=== PATIENT | male | born 1955 | race Caucasian/White ===

== ENCOUNTER 2016-09-01 22:55 | Emergency (ER) | payer BC ==
[2016-09-01 23:07] VITALS: BMI 28.3
[2016-09-01] MEDS ORDERED: NS 1000 ML 1,000 ML IV ONE (23:25)
[2016-09-01] MEDS ORDERED: NS 1000 ML 1,000 ML ONE (23:30)
--- NOTE | 2016-09-01 23:31 | DR.GENAD ---
HPI - PCP Primary Care Physician: sean - Complaint/Symptoms Chief Complaint Doctors Comments: Spouse reports that patient has been having problems with breathing and not feeling well this week. He has been seen by his pcp and treated with steroids and patient has not gotten better. He presents with complaint of altered mental status, difficulity in breathing and not feeling well. Chief Complaint:: sciatic pain treated by a week ago, since progressively got worse. started with fever yesterday and confusion started today. decrease appetite, urine dark and strong smelling. Self Treatment fo Chief Complaint: cortisone injection, percocet, tramadol - Source History Provided: Significant Other - Mode of Arrival Mode of Arrival: Wheelchair - Timing Onset of Chief Complaint: 09/01/16 PMH - PMH Past Medical History: Yes Past Medical History: Diabetes, Dyslipidemia, Hypertension Past Surgical History: No - Family History History of Family Medical Conditions: Yes Family Medical History: Coronary Artery Disease, Hypertension - Social History Does patient currently use any type of tobacco product: No Have you used tobacco products in the last 12 months: No Type of Tobacco Use: None Does any household member use tobacco: No Alcohol Use: None Do you use any recreational Drugs:: No Lives With: Spouse Lives Where: Home - infectious screening Have you traveled outside the country in the last 6 months?: No Isolation: Standard ROS - Review of Systems Constitutional: No Symptoms Reported, Diaphoresis ENTM: No Symptoms Reported Respiratoy: No Symptoms Reported Cardiovascular: No Symptoms Reported Gastrointestinal/Abdominal: No Symptoms Reported Genitourinary: No Symptoms Reported Neurological: No Symptoms Reported Musculoskeletal: No Symptoms Reported Integumentary: No Symptoms Reported Hematologic/Lymphatic: No Symptoms Reported Endocrine: No Symptoms Reported Psychiatric: No Symptoms Reported All Other Systems: Reviewed and Negative PE - Vital Signs Vitals: Temperature 102.2 F Pulse Rate [Right Brachial] 100 Pulse Rate 100 Respiratory Rate 18 Blood Pressure [Right Arm] 123/53 Blood Pressure [Left Arm] 164/87 Blood Pressure 111/50 O2 Sat by Pulse Oximetry 93 - General Limitations: No Limitations General Appearance: Alert, In No Apparent Distress - Head Head Exam: Normal Inspection, Atraumatic - Eyes Eye exam: Normal Appearance, PERRL, EOMI - ENT ENT Exam: Normal Exam External Ear Exam: Normal External Inspection TM/Canal Exam: Bilateral Normal Nose Exam: Normal Nose Exam Mouth Exam: Normal Inspection Throat Exam: Normal Inspection - Neck Neck Exam: Normal Inspection - Chest Chest Inspection: Normal Inspection - Respiratory Respiratory Exam: Normal Lung Sounds Bilat Respiratory Exam: Bilateral Clear to Auscultation - Cardiovascular Cardiovascular Exam: Regular Rate, Normal Rhythm - Abdominal Exam Abdominal Exam: Normal Inspection Abdominal Tenderness: RUQ, RLQ, LUQ, LLQ - Extremities Extremities Exam: Normal Inspection, Full ROM - Back Back Exam: Normal Inspection, Full ROM - Neurologic Neurological Exam: Alert, Oriented X3, CN II-XII Intact - Psychiatric Psychiatric Exam: Normal Affect - Skin Skin Exam: Warm, Dry, Intact Course - Reevaluation 1st: Improved - Consultation Called: 01:50 (Report given to Dr Arceo (ER to ER) who accepted patient for transfer) ROR - Labs Reviewed Result Diagrams: 09/01/16 23:30 09/01/16 23:30 Laboratory: WBC 51.0 X10^3/uL (3.6-10.0) H* 09/01/16 23:30 RBC 3.22 X10^6/uL (4.7-6.0) L 09/01/16 23: Hgb 9.8 g/dL (13.5-18.0) L 09/01/16 23:30 Hct 29.0 % (42.0-54.0) L 09/01/16 23:30 MCV 90.1 fL (80.0-100.0) 09/01/16 23:30 MCH 30.3 pg (27.0-34.0) 09/01/16 23:30 MCHC 33.7 g/dL (33.0-35.0) 09/01/16 23: RDW 19.1 % (11.6-16.5) H 09/01/16 23:30 Plt Count 15 X10^3/uL (150.0-450.0) L* 09/01/16 23:30 Plt Count Comment Decreased (ADEQUATE) 09/01/16: MPV 9.8 fL (7.4-11.0) 09/01/16 23:30 Neut % 91.6 % (42.0-75.0) H 09/01/16 23:30 Lymph % 5.1 % (21.0-51.0) L 09/01/16: Parmer % 0.8 % (0.0-13.0) 09/01/16 23:30 Eos % 2.5 % (0.9-2.9) 09/01/16 23:30 Baso % 0 % (0.2-1.0) L 09/01/16 23:30 Neut # 46.6 x10^3/uL (2.2-4.8) H 09/01/16 23:30 Lymph # 2.6 X10^3/uL (1.3-2.9) 09/01/16 23:30 Parmer # 0.4 x10^3/uL (0.3-0.8) 09/01/16 23:30 Eos # 1.3 x10^3/uL (0.0-0.2) H 09/01/16 23:30 Baso # 0.0 X10^3/uL (0.0-0.1) 09/01/16 23:30 Absolute Nucleated RBC 0.0 /100WBC 09/01/16 23:30 Total Counted 100 09/01/16 23:30 Neutrophils % (Manual) 7 % (39-76) L 09/01/16 23:30 Band Neutrophils % 2 % (0-10) 09/01/16 23:30 Lymphocytes % (Manual) 25 % (13-43) 09/01/16 23:30 Monocytes % (Manual) 2 % (4-9) L 09/01/16 23:30 Myelocytes % 4 09/01/16 23:30 Promyelocytes % 6 09/01/16 23:30 Nucleated RBCs 1 09/01/16 23:30 Atypical Lymphocytes 14 09/01/16 23:30 Blast Cells 39 (-1) H 09/01/16 23:30 Smudge Cells 5 09/01/16 23:30 Plt Morphology Comment Normal (NORMAL) 09/01/16 23:30 RBC Morphology Abnormal (NORMAL) 09/01/16 23:30 Anisocytosis Slight A 09/01/16 23:30 Sodium 132 mmol/L (136-145) L 09/01/16 23:30 Corrected Sodium 139 mmol/L (136-145) 09/01/16 23:30 Potassium 4.7 mmol/L (3.5-5.1) 09/01/16 23:30 Chloride 96 mmol/L (98-107) L 09/01/16 23:30 Carbon Dioxide 20.3 mmol/L (21-32) L 09/01/16 23:30 BUN 116 mg/dL (7-18) H 09/01/16 23:30 Creatinine 4.99 mg/dL (0.70-1.30) H 09/01/16 23:30 Est GFR (MDRD) Af Amer 15 (>60) L 09/01/16 23:30 Est GFR (MDRD) Non-Af 13 (>60) L 09/01/16 23:30 Glucose 395 mg/dL (65-99) H 09/01/16 23:30 Lactic Acid 2.1 mmol/L (0.4-2.0) H 09/02/16 00:20 Calcium 8.6 mg/dL (8.5-10.1) 09/01/16 23:30 Corrected Calcium 9.7 mg/dL (8.5-10.1) 09/01/16 23: Phosphorus 2.9 mg/dL (2.6-4.7) 09/01/16 23: Magnesium 2.2 mg/dL (1.7-2.9) 09/01/16 23:30 Total Bilirubin 3.60 mg/dL (0.2-1.0) H 09/01/16 23:30 AST 112 Units/L (15-37) H 09/01/16 23:30 ALT 125 Units/L (12-78) H 09/01/16 23:30 Alkaline Phosphatase 407 Units/L (46-116) H 09/01/16 23:30 Creatine Kinase 161 Units/L (39-308) 09/01/16 23:30 CK-MB (CK-2) < 1.0 ng/mL (0-4.0) 09/01/16 23:30 CK/CKMB % Calc 0.6 % (<4) 09/01/16: Troponin I 0.10 ng/mL (0-1.5) 09/01/16 23:30 Total Protein 6.9 g/dL (6.4-8.2) 09/01/16 23:30 Albumin 2.6 g/dL (3.4-5.0) L 09/01/16 23:30 Globulin 4.3 g/dL (2.5-4.5) 09/01/16 23:30 Albumin/Globulin Ratio 0.6 Ratio (1.1-2.1) L 09/01/16 23:30 Specimen Type Clean catch urine 09/02/16 01:00 Urine Color Chitra (YELLOW) 09/02/16 01:00 Urine Appearance Cloudy (CLEAR) 09/02/16 01:00 Urine pH 5.0 (5.0 - 8.0) 09/02/16 01:00 Ur Specific [place] 1.020 (1.000-1.030) 09/02/16 01:00 Urine Protein 2+ (NEGATIVE) 09/02/16 01:00 Urine Glucose (UA) 2+ (NEGATIVE) 09/02/16 01:00 Urine Ketones Negative (NEGATIVE) 09/02/16 01:00 Urine Occult Blood 5+ (NEGATIVE) 09/02/16 01:00 Urine Nitrite Negative (NEGATIVE) 09/02/16 01:00 Urine Bilirubin 2+ (NEGATIVE) 09/02/16 01:00 Urine Urobilinogen 3+ (NORMAL) 09/02/16 01:00 Ur Leukocyte Esterase 2+ (NEGATIVE) 09/02/16 01:00 Urine RBC 80-100 /HPF (NEGATIVE) 09/02/16 01:00 Urine WBC 15-20 /HPF (NEGATIVE) 09/02/16 01:00 Ur Squamous Epith Cells Few /HPF (NEGATIVE) 09/02/16 01:00 Amorphous Sediment 1+ /HPF (NEGATIVE) 09/02/16 01:00 Urine Bacteria 1+ /HPF (NEGATIVE) 09/02/16 01:00 Ur Culture Indicated? Yes/culture set up 09/02/16 01:00 - XRAY XRAY Interpreted by: Radiologist (CT Brain: The cerebral and cerebella cortex are normal. The ventricular system is nondilated. No intra or extra-axial mass or hemorrhage. The curm-white junction is preserved. There is no evidence of subacute ischemic change. The basilar cisterns are clear. The skull is intact. The mastoid air cells are clear. Impression: Normal brain CT examination. Chest X-Ray: Focal areas of consolidation are seen in both lower lobes. The cardiac silhouette and mediastinum are normal. The regional skeleton is intact. No pneumothorax or pleural effusioon. Impression: Consolidation noted in both lung bases consistent with pneumonia.) - EKG Rate: 107 Rhythm: NSR Hypertrophy: LAE - Diagnosis Discharge Problem: Bilateral Pneumonia with consolidation, Hyperglycemia, Liver enzyme elevation Sepsis Qualifiers: Sepsis type: sepsis due to unspecified organism Qualified Code(s): A41.9 - Sepsis, unspecified organism Acute renal failure (ARF) Qualifiers: Acute renal failure type: unspecified Qualified Code(s): N17.9 - Acute kidney failure, unspecified - Discharge Plan Condition: Stable - Follow ups/Referrals Follow ups/Referrals: Dung Esposito [Primary Care Provider] - 3 days - Instructions
--- NOTE | 2016-09-01 23:59 | CT ---
EXAM: CT BRAIN WITHOUT CONTRAST INDICATION: Altered mental status COMPARISION: No Priors TECHNIQUE: Routine axial CT of the brain was performed without intravenous contrast. FINDINGS: The cerebral and cerebellar cortex are normal. The ventricular system is nondilated. No intra or ext ra-axial mass or hemorrhage. The crum-white junction is preserved. There is no evidence of subacute ischemic change. The basilar cisterns are clear. The skull is intact. The mastoid air cells are clear. IMPRESSION: Normal brain CT examination Reported By:
[2016-09-02 00:04] LABS: BLOOD UREA NITROGEN 116 mg/dL (7-18); CALCIUM 8.6 mg/dL (8.5-10.1); CARBON DIOXIDE 20.3 mmol/L (21-32); CHLORIDE 96 mmol/L (98-107); COR NA(FOR HYPERGLY) 139 mmol/L (136-145); CREATININE 4.99 mg/dL (0.70-1.30); GLUCOSE 395 mg/dL (65-99); SODIUM 132 mmol/L (136-145); eGFR BLACK RACES 15 (>60); eGFR NON BLACK RACES 13 (>60)
[2016-09-02 00:08] LABS: ALANINE AMINOTRANSFERASE 125 Units/L (12-78); ALBUMIN 2.6 g/dL (3.4-5.0); ALKALINE PHOSPHATASE 407 Units/L (46-116); ASPARTATE AMINO TRANSFERASE 112 Units/L (15-37); CKMB % 0.6 % (<4); COR CA(FOR HYPOALB) 9.7 mg/dL (8.5-10.1); CREATINE KINASE 161 Units/L (39-308); CREATINE KINASE MB < 1.0 ng/mL (0-4.0); MAGNESIUM 2.2 mg/dL (1.7-2.9); PHOSPHORUS 2.9 mg/dL (2.6-4.7); TOTAL PROTEIN 6.9 g/dL (6.4-8.2)
--- NOTE | 2016-09-02 00:10 | RAD ---
EXAM: Chest X-ray INDICATION: Fever, tachypnea COMPARISION: Prior exam from May 26, 2016 TECHNIQUE: AP, single view FINDINGS: Focal areas of consolidation are seen in both lower lobes. The cardiac silhouette and mediastinum ar e normal. The regional skeleton is intact. No pneumothorax or pleural effusion. IMPRESSION: Consolidation noted in both lung bases consistent with pneumonia. Reported By:
[2016-09-02] MEDS ORDERED: SALINE 3% 15 ML NEB TX ONE (00:33)
[2016-09-02 00:48] LABS: BASOPHILS % (AUTO) 0 % (0.2-1.0); EOSINOPHILS # (AUTO) 1.3 x10^3/uL (0.0-0.2); EOSINOPHILS % (AUTO) 2.5 % (0.9-2.9); HEMOGLOBIN 9.8 g/dL (13.5-18.0); LYMPHOCYTES # (AUTO) 2.6 X10^3/uL (1.3-2.9); LYMPHOCYTES % (AUTO) 5.1 % (21.0-51.0); MEAN CORPUSCULAR HEMOGLOBIN 30.3 pg (27.0-34.0); MEAN CORPUSCULAR HGB CONC 33.7 g/dL (33.0-35.0); MEAN CORPUSCULAR VOLUME 90.1 fL (80.0-100.0); MEAN PLATELET VOLUME 9.8 fL (7.4-11.0); MONOCYTES # (AUTO) 0.4 x10^3/uL (0.3-0.8); MONOCYTES % (AUTO) 0.8 % (0.0-13.0); NEUTROPHILS # (AUTO) 46.6 x10^3/uL (2.2-4.8); NEUTROPHILS % (AUTO) 91.6 % (42.0-75.0); RED BLOOD COUNT 3.22 X10^6/uL (4.7-6.0); RED CELL DISTRIBUTION WIDTH 19.1 % (11.6-16.5)
[2016-09-02] MEDS ORDERED: NS 1000 ML 1,000 ML ONE ×2 (00:53→01:36)
[2016-09-02] MEDS ORDERED: NS 1000 ML 1,000 ML IV ONE (00:53)
[2016-09-02 01:20] LABS: BILIRUBIN,URINE 2+ (NEGATIVE); BLOOD/HEMOGLOBIN,URINE 5+ (NEGATIVE); GLUCOSE, URINE 2+ (NEGATIVE); KETONES,URINE NEGATIVE (NEGATIVE); LEUKOCYTE ESTERASE ,URINE 2+ (NEGATIVE); NITRITES,URINE NEGATIVE (NEGATIVE); PROTEIN,URINE 2+ (NEGATIVE); UROBILINOGEN,URINE 3+ (NORMAL)
[2016-09-02] MEDS ORDERED: LEVAQUIN PREMIX IV 750 MG 750 MG/150 ML BAG IV ONE ×2 (01:30→01:31)
[2016-09-02 01:34] VITALS: BP 123/53
[2016-09-02 01:35] LABS: BAND NEUTROPHILS % 2 % (0-10)
[2016-09-02 01:36] LABS: ANISOCYTOSIS SLIGHT; MYELOCYTES % 4; PLATELET MORPHOLOGY COMMENT NORMAL (NORMAL); PROMYELOCYTES % 6; SMUDGE CELLS 5
[2016-09-02 01:48] LABS: AMORPHOUS SEDIMENT,UR 1+ /HPF (NEGATIVE); APPEARANCE,URINE CLOUDY (CLEAR); BACTERIA,URINE 1+ /HPF (NEGATIVE); COLOR,URINE AMBER (YELLOW); RBC,URINE 80-100 /HPF (NEGATIVE); SQUAMOUS EPITHELIAL CELL,UR FEW /HPF (NEGATIVE)
[2016-09-04 19:10] LABS: PLATELET COUNT 15 X10^3/uL (150.0-450.0)
== END 2016-09-02 02:30 | disposition short-term general hospital (02) ==
LOC: ER 23:10
DX: J18.8 Other pneumonia, unspecified organism (principal); A41.52 Sepsis due to Pseudomonas; B96.5 Pseudomonas (aeruginosa) (mallei) (pseudomallei) as the cause of diseases classified elsewhere; B96.1 Klebsiella pneumoniae [K. pneumoniae] as the cause of diseases classified elsewhere; N17.9 Acute kidney failure, unspecified; R73.9 Hyperglycemia, unspecified; I10 Essential (primary) hypertension; R41.82 Altered mental status, unspecified
CPT/HCPCS: 36415; 70450; 71010; 80053; 81001; 82550; 82553; 83605; 83735; 84100; 84484; 85025; 85060; 87040; 87077; 87086; 87186; 93005; 93010; 94640; 96365; 96367; 96374; 99284; 99285; A4222; J1956

== ENCOUNTER 2017-04-23 19:03 | Emergency (ER) | payer BC ==
[2017-04-23 19:14] VITALS: BMI 30.9
--- NOTE | 2017-04-23 19:45 | DR.GENAD ---
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 He is afebrile but has noticed increased abdomial girth the past few days. He presents with dyspnea of on days duration. Chief Complaint:: PT STATES" I'M BEING TREATED FOR CANCER I WENT TO [facility] LAST NIGHT THEY DID CHEST XRAY AND LABS I CAME HOME AT 7 THIS AM. MY STOMACH IS DISTENDED AND SOB HAS GOTTEN WORSE" - Source History Provided: Patient - Mode of Arrival Mode of Arrival: Ambulatory - Timing Onset of Chief Complaint: 04/22/17 PMH - PMH Past Medical History: Yes Past Medical History: Diabetes, Dyslipidemia, Hypertension Past Medical History Comment: AML Past Surgical History: Yes Past Surgical History Comment: SINUS CENTRAL LINE TO RT CW - Family History History of Family Medical Conditions: Yes Family Medical History: Coronary Artery Disease, Hypertension - Social History Does patient currently use any type of tobacco product: No Have you used tobacco products in the last 12 months: No Type of Tobacco Use: None Does any household member use tobacco: No Do you use any recreational Drugs:: No Lives With: Family Lives Where: Home - infectious screening In the last 2 months have you had wt loss of >10#?: NO Have you had fever, night sweats or hemotysis?: No Have you traveled outside the country in the last 6 months?: No Isolation: Standard ROS - Review of Systems Constitutional: Weakness, Other (increasing abdominal girth) Eyes: No Symptoms Reported ENTM: No Symptoms Reported Respiratoy: No Symptoms Reported Cardiovascular: No Symptoms Reported Gastrointestinal/Abdominal: No Symptoms Reported Genitourinary: No Symptoms Reported Neurological: No Symptoms Reported Musculoskeletal: No Symptoms Reported Integumentary: No Symptoms Reported Hematologic/Lymphatic: No Symptoms Reported Endocrine: No Symptoms Reported Psychiatric: No Symptoms Reported, See HPI All Other Systems: Reviewed and Negative PE - Vital Signs Vitals: Temperature 99.2 F Pulse Rate [Left] 106 Pulse Rate 100 Respiratory Rate 20 Blood Pressure [Right Arm] 123/53 Blood Pressure [Left Arm] 153/70 Blood Pressure 137/60 O2 Sat by Pulse Oximetry 98 - General General Appearance: Alert, Anxious - Head Head Exam: Normal Inspection, Atraumatic - Eyes Eye exam: Normal Appearance, PERRL, EOMI - ENT ENT Exam: Normal Exam, Normal Oropharynx External Ear Exam: Normal External Inspection TM/Canal Exam: Bilateral Normal Nose Exam: Normal Nose Exam Mouth Exam: Normal Inspection Throat Exam: Normal Inspection - Neck Neck Exam: Normal Inspection - Chest Chest Inspection: Normal Inspection - Respiratory Respiratory Exam: Normal Lung Sounds Bilat Respiratory Exam: Bilateral Clear to Auscultation - Cardiovascular Cardiovascular Exam: Regular Rate, Normal Rhythm - Abdominal Exam Abdominal Exam: Distention, Tenderness, Hyperactive Bowel Sounds Abdominal Tenderness: Diffuse - Extremities Extremities Exam: Edema (left lower extremity) - Back Back Exam: Normal Inspection - Neurologic Neurological Exam: Alert, Oriented X3, CN II-XII Intact - Psychiatric Psychiatric Exam: Normal Affect, Normal Mood - Skin Skin Exam: Warm, Dry, Intact Course - Reevaluation 1st: Improved - Consultation Called: 11:45 (Dr Covington accepted patient for admission to 8th floor) - Education/Counseling Educated On: Treatment, Diagnosis ROR - Labs Reviewed Result Diagrams: 04/23/17 20:08 04/23/17 20:08 Laboratory: WBC 34.9 X10^3/uL (3.6-10.0) H* 04/23/17 20:08 RBC 3.23 X10^6/uL (4.7-6.0) L 04/23/17 20:08 Hgb 11.2 g/dL (13.5-18.0) L 04/23/17 20:08 Hct 31.3 % (42.0-54.0) L 04/23/17 20:08 MCV 96.7 fL (80.0-100.0) 04/23/17 20:08 MCH 34.6 pg (27.0-34.0) H 04/23/17 20:08 MCHC 35.7 g/dL (33.0-35.0) H 04/23/17 20:08 RDW 15.3 % (11.6-16.5) 04/23/17 20:08 Plt Count 24 X10^3/uL (150.0-450.0) L 04/23/17 20:08 Plt Count Comment Decreased (ADEQUATE) 04/23/17 20:08 MPV 8.1 fL (7.4-11.0) 04/23/17 20:08 Neut % 82.7 % (42.0-75.0) H 04/23/17 20:08 Lymph % 15.2 % (21.0-51.0) L 04/23/17 20:08 [place] % 0.4 % (0.0-13.0) 04/23/17 20:08 Eos % 1.0 % (0.9-2.9) 04/23/17 20:08 Baso % 0.7 % (0.2-1.0) 04/23/17 20:08 Neut # 28.8 x10^3/uL (2.2-4.8) H 04/23/17 20:08 Lymph # 5.3 X10^3/uL (1.3-2.9) H 04/23/17 20:08 [place] # 0.1 x10^3/uL (0.3-0.8) L 04/23/17 20:08 Eos # 0.4 x10^3/uL (0.0-0.2) H 04/23/17 20:08 Baso # 0.3 X10^3/uL (0.0-0.1) H 04/23/17 20:08 Absolute Nucleated RBC 0.0 /100WBC 04/23/17 20:08 Total Counted 100 04/23/17 20:08 Neutrophils % (Manual) 2 % (39-76) L 04/23/17 20:08 Band Neutrophils % 2 % (0-10) 04/23/17 20:08 Lymphocytes % (Manual) 18 % (13-43) 04/23/17 20:08 Monocytes % (Manual) 40 % (4-9) H 04/23/17 20:08 Eosinophils % (Manual) 3 % (0-6) 04/23/17 20:08 Promyelocytes % 11 04/23/17 20:08 Nucleated RBCs 3 04/23/17 20:08 Atypical Lymphocytes 4 04/23/17 20:08 Blast Cells 20 (-1) H 04/23/17 20:08 Plt Morphology Comment Normal (NORMAL) 04/23/17 20:08 RBC Morphology Abnormal (NORMAL) 04/23/17 20:08 Polychromasia Slight 04/23/17 20:08 Poikilocytosis Slight A 04/23/17 20:08 D-Dimer > 5000 ng/mL (0-400) H* 04/23/17 20:08 Sodium 134 mmol/L (136-145) L 04/23/17 20:08 Corrected Sodium 135 mmol/L (136-145) L 04/23/17 20:08 Potassium 4.3 mmol/L (3.5-5.1) 04/23/17 20:08 Chloride 100 mmol/L (98-107) 04/23/17 20:08 Carbon Dioxide 22.5 mmol/L (21-32) 04/23/17 20:08 BUN 19 mg/dL (7-18) H 04/23/17 20:08 Creatinine 1.87 mg/dL (0.70-1.30) H 04/23/17 20:08 Est GFR (MDRD) Af Amer 47 (>60) L 04/23/17 20:08 Est GFR (MDRD) Non-Af 39 (>60) L 04/23/17 20:08 Glucose 142 mg/dL (65-99) H 04/23/17 20:08 Calcium 8.6 mg/dL (8.5-10.1) 04/23/17 20:08 - XRAY XRAY Interpreted by: Radiologist (CT Abdomen: There is right basilar atelectasis but otherwise the lung bases are clear. There is a small to moderate quantity of asites seen in the upper abdomen and collecting in the pericolic gutters bilaterally. There is moderate quantity of pelvic ascites appreciated. There is the suggestion of omental caking and possible carcinomatosis seen throughout the upper abdomen. This would need correlation with a diagnostic paracentesis to evaluate for malignant ascitic cells. Correlation with either prior imaging studies and medical history/clinical oncological history will also be required to evaluate for peritoneal carcinomatosis in this patient and to exclude carcinomatosis in this patient. Noncontrast CT images of the liver, gallbladder, spleen,pancreas, kidneys and adrenal glands show no acute abnormalities. Shotty and suspicous retroperitoneal adenopathy is seen in the upper abdomen with multiple mesenteric lymph nodes also observed which may be reactive in nature. There is a small fat containing periumbilical hernia. There is no evidence for bowel obstruction or free peritoneal air. No other acute abdominopelvic abnormalities are seen. The bones displaced somewhat sclerotic and mottled appearance which can be seen with reactive changes or nonspecific sclerotic metastasis but which can be correlated with bone scan imaging; as clinically necessary. 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
[2017-04-23 20:16] LABS: BASOPHILS # (AUTO) 0.3 X10^3/uL (0.0-0.1); BASOPHILS % (AUTO) 0.7 % (0.2-1.0); EOSINOPHILS # (AUTO) 0.4 x10^3/uL (0.0-0.2); HEMATOCRIT 31.3 % (42.0-54.0); HEMOGLOBIN 11.2 g/dL (13.5-18.0); LYMPHOCYTES # (AUTO) 5.3 X10^3/uL (1.3-2.9); LYMPHOCYTES % (AUTO) 15.2 % (21.0-51.0); MEAN CORPUSCULAR HEMOGLOBIN 34.6 pg (27.0-34.0); MEAN CORPUSCULAR HGB CONC 35.7 g/dL (33.0-35.0); MEAN CORPUSCULAR VOLUME 96.7 fL (80.0-100.0); MEAN PLATELET VOLUME 8.1 fL (7.4-11.0); MONOCYTES # (AUTO) 0.1 x10^3/uL (0.3-0.8); MONOCYTES % (AUTO) 0.4 % (0.0-13.0); NEUTROPHILS # (AUTO) 28.8 x10^3/uL (2.2-4.8); NEUTROPHILS % (AUTO) 82.7 % (42.0-75.0); PLATELET COUNT 24 X10^3/uL (150.0-450.0); RED BLOOD COUNT 3.23 X10^6/uL (4.7-6.0); RED CELL DISTRIBUTION WIDTH 15.3 % (11.6-16.5)
[2017-04-23 20:22] LABS: BLOOD UREA NITROGEN 19 mg/dL (7-18); CALCIUM 8.6 mg/dL (8.5-10.1); CARBON DIOXIDE 22.5 mmol/L (21-32); CHLORIDE 100 mmol/L (98-107); COR NA(FOR HYPERGLY) 135 mmol/L (136-145); CREATININE 1.87 mg/dL (0.70-1.30); SODIUM 134 mmol/L (136-145); eGFR BLACK RACES 47 (>60); eGFR NON BLACK RACES 39 (>60)
[2017-04-23 20:30] LABS: WHITE BLOOD COUNT 34.9 X10^3/uL (3.6-10.0)
[2017-04-23 21:43] LABS: BAND NEUTROPHILS % 2 % (0-10)
[2017-04-23 21:49] LABS: PLATELET MORPHOLOGY COMMENT NORMAL (NORMAL); POIKILOCYTOSIS SLIGHT; POLYCHROMASIA SLIGHT
[2017-04-23 21:51] LABS: PROMYELOCYTES % 11
--- NOTE | 2017-04-23 21:59 | CT ---
History: Abdominal pain and ascites. History of cancer. Exam: Noncontrast CT examination the abdomen and pelvis. Technique: Axial noncontrast CT images of the abdomen & pelvis were performed from the lung bases to the pubic s ymphysis without the benefit of IV contrast. Sagittal and coronal reformatted CT images of the abdome n pelvis were also performed in this patient. Comparison: None. Findings: There is right basilar atelectasis but otherwise the lung bases are clear. There is a small to moderate quantity of ascites seen in the upper abdomen and collecting in the pericolic gutters bi laterally. There is a moderate quantity of pelvic ascites appreciated. There is the suggestion of ome ntal caking and possible carcinomatosis seen throughout the upper abdomen. This would need correlatio n with a diagnostic paracentesis to evaluate for malignant ascitic cells. Correlation with either marivel or imaging studies and medical history/clinical/oncological history will also be required to evaluate for peritoneal carcinomatosis in this patient and to exclude carcinomatosis in this patient. Noncont rast CT images of the liver, gallbladder, spleen, pancreas, kidneys, and adrenal glands show no acute abnormalities. Shotty and suspicious retroperitoneal adenopathy is seen in the upper abdomen with mu ltiple mesenteric lymph nodes also observed which may be reactive in nature. There is a small fat con taining periumbilical hernia. There is no evidence for bowel obstruction or free peritoneal air. No o ther acute abdominopelvic abnormalities are seen. The bones displaced somewhat sclerotic and mottled appearance which can be seen with reactive changes or nonspecific sclerotic metastasis but which can be correlated with bone scan imaging, as clinically necessary. No acute fracture or lytic bony lesion is seen Impression: Small to moderate quantity of ascites seen in the upper abdomen and collecting in the per icolic gutters bilaterally. There is a moderate quantity of pelvic ascites also appreciated. There is the suggestion of omental caking and possible carcinomatosis throughout the upper abdomen. This woul d need correlation with a diagnostic paracentesis to evaluate for malignant ascitic cells. Correlatio n with any presumed prior imaging studies and medical history/clinical/oncological history will also be required to evaluate for peritoneal carcinomatosis in this patient and to exclude carcinomatosis in this patient. Reported By:
[2017-04-23 22:53] VITALS: BP 153/70
== END 2017-04-24 01:26 | disposition short-term general hospital (02) ==
LOC: ER 19:03
DX: C92.01 Acute myeloblastic leukemia, in remission (principal); C92 Myeloid leukemia; C92.A1 Acute myeloid leukemia with multilineage dysplasia, in remission; R18.0 Malignant ascites; D72.829 Elevated white blood cell count, unspecified; R10.84 Generalized abdominal pain
CPT/HCPCS: 36415; 74176; 80048; 85025; 85378; 99285; A4222